=== PATIENT | female | born 1975 | race Hispanic/Latino ===

== ENCOUNTER 2023-03-24 11:22 | Emergency (ER) | payer SELFPAY ==
[~2023-03-24] VITALS: Ht 162.6 cm; Wt 83.9 kg
[2023-03-24 12:02] LABS: BASOPHILS % (AUTO) 0.6 % (0.0-5.0); EOSINOPHILS % (AUTO) 12.8 % (0.0-8.0); LYMPHOCYTES % (AUTO) 18.3 % (21.0-51.0); MEAN CORPUSCULAR HEMOGLOBIN 26.5 pg (27.0-33.0); MEAN CORPUSCULAR HGB CONC 32.1 g/dL (32.0-36.0); MEAN CORPUSCULAR VOLUME 82.5 fL (79-99); NEUTROPHILS % (AUTO) 63.2 % (40.0-77.0); PLATELET COUNT (AUTO) 250 K/uL (130-400); RED BLOOD CELL COUNT(AUTO) 5.09 MIL/uL (4.00-5.50); RED CELL DISTRIBUTION WIDTH 14.7 % (11.0-15.5)
[2023-03-24 12:10] LABS: POTASSIUM 3.4 mmol/L (3.5-5.1)
[2023-03-24 12:15] LABS: ALBUMIN 3.3 g/dL (3.5-5.0); TOTAL PROTEIN, SERUM 7.4 g/dL (6.0-8.3)
[2023-03-24] MEDS ORDERED: ONDANSETRON 4MG INJ IVP ONE (12:30)
[2023-03-24] MEDS ORDERED: MORPHINE 2 MG SYG IVP ONE (12:30)
[2023-03-24] MEDS ORDERED: LORAZEPAM 2 MG/ML 1 ML VIAL IVP ONE (14:00)
[2023-03-24] MEDS ORDERED: HYDR-3421 PO (14:55)
[2023-03-24 14:58] VITALS: BP 147/68; PULSE 77; RESP 20; O2SAT 98
[2023-03-24] MEDS ORDERED: AMOX500C2 PO (15:08)
[2023-03-24] MEDS ORDERED: LIDOCAINE HCL 1% 20 ML VIAL ONE (15:11)
[2023-03-24] MEDS ORDERED: CEFTRIAXONE 1G VIAL IM ONE (15:30)
== END 2023-03-24 15:03 | disposition home or self-care (01) ==
LOC: EDH 11:22
DX: J02.0 Streptococcal pharyngitis (principal); F41.9 Anxiety disorder, unspecified; Z20.822 Contact with and (suspected) exposure to COVID-19
CPT/HCPCS: 99285; 70450; 96374; 71045; 96375; 87635; 80053; 85025; 87880; 87804 ×2; 36415; 73562; 72125; 96372; C9803; J2270; J0696; J2405; J2060